=== PATIENT | male | born 1955 | race Caucasian/White ===

== ENCOUNTER 2017-04-03 13:34 | Emergency (ER) | payer MEDICAID ==
[~2017-04-03] VITALS: Ht 170.2 cm; Wt 113.0 kg
[~2017-04-03 13:34] MED LIST: ADVA100A INH; ALBUAER3 INH; CART240C PO; ENAL20TA PO; GABA100C4 PO; MORP1CAP81 PO; OXYC1CAP PO; PRIM250T5 PO; ROPI1TAB72 PO; SOMA350T PO; TAMS5CAP PO; VANC1INJ
[2017-04-03 13:45] VITALS: BP 155/117; PULSE 96; RESP 20; TEMP 98.2; O2SAT 97
[2017-04-03] MEDS ORDERED: PRIM50TA5 PO (14:12)
[2017-04-03] MEDS ORDERED: HYDR-3583 PO (14:12)
[2017-04-03] MEDS ORDERED: CYMB30CA PO (14:12)
[2017-04-03] MEDS ORDERED: FURO40TA PO (14:12)
[2017-04-03] MEDS ORDERED: DOXY100C PO (14:12)
[2017-04-03] MEDS ORDERED: ROPI1TAB PO (14:12)
[2017-04-03] MEDS ORDERED: MUPI2OIN TOPICAL (14:12)
[2017-04-03] MEDS ORDERED: ADVA250A INH (14:12)
[2017-04-03] MEDS ORDERED: TAMS0.4C4 PO (14:12)
[2017-04-03] MEDS ORDERED: ARTISOL EACH EYE (14:12)
[2017-04-03] MEDS ORDERED: DIFL200T PO (14:12)
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
== END 2017-04-03 14:51 | disposition home or self-care (01) ==
LOC: PHED 13:34
DX: S80.02XA Contusion of left knee, initial encounter (principal); M32.9 Systemic lupus erythematosus, unspecified; F41.9 Anxiety disorder, unspecified; I10 Essential (primary) hypertension; E78.00 Pure hypercholesterolemia, unspecified; J44.9 Chronic obstructive pulmonary disease, unspecified; W22.8XXA Striking against or struck by other objects, initial encounter
CPT/HCPCS: 99282